=== PATIENT | male | born 1990 | race African-American/Black ===

== ENCOUNTER 2025-03-05 03:50 | Emergency (ER) | payer MEDICAID ==
[~2025-03-05] VITALS: Ht 180.3 cm; Wt 114.0 kg
[2025-03-05 03:53] VITALS: O2SAT 98
[2025-03-05] MEDS: KETOROLAC 15MG/ML VIAL IM ONE (05:21)
[2025-03-05] MEDS: LIDOCAINE 5% PATCH TOP SCH (05:21)
[2025-03-05] MEDS ORDERED: NAPR-1176 MT (05:23)
[2025-03-05] MEDS ORDERED: LIDO-53 TP (05:23)
[2025-03-05 06:04] LABS: BASOPHILS % 1.6 % (0.0-2.0); EOSINOPHILS % 0.3 % (0.0-5.0); HEMATOCRIT. 39.6 % (42.0-52.0); HEMOGLOBIN. 13.4 g/dL (14.0-18.0); LYMPHOCYTES % 14.4 % (20.0-50.0); MEAN PLATELET VOLUME 7.1 fl (7.4-10.4); MONOCYTES % 4.3 % (2.0-8.0); NEUTROPHILS % 79.4 % (40.0-76.0); PLATELET 398 x1000/uL (130-400); RED BLOOD CELL COUNT 4.24 mill/uL (4.7-6.1); RED CELL DISTRIBUTION WIDTH 17.0 % (11.6-14.6)
[2025-03-05 06:16] LABS: CREATININE 0.8 mg/dL (0.6-1.3); UREA NITROGEN BLOOD 5 mg/dL (9-23)
[2025-03-05 11:24] LABS: CLARITY URINE CLEAR (CLEAR); COLOR URINE YELLOW (YELLOW); GLUCOSE URINE NEGATIVE (NEGATIVE); KETONES URINE 2+ (NEGATIVE); LEUKOCYTE ESTERASE URINE NEGATIVE (NEGATIVE); NITRITE URINE NEGATIVE (NEGATIVE); OCCULT BLOOD URINE NEGATIVE (NEGATIVE); PH URINE 5.0 (4.5-8.0); PROTEIN URINE NEGATIVE (NEGATIVE); SPECIFIC GRAVITY URINE 1.004 (1.005-1.030); UROBILINOGEN URINE 0.2 E.U./dL (0.2-1.0)
[2025-03-05 11:44] LABS: *AMPHETAMINES SCREEN URINE NEGATIVE (NEGATIVE); *BARBITURATES SCREEN URINE NEGATIVE (NEGATIVE); *BENZODIAZEPINES SCREEN URINE NEGATIVE (NEGATIVE); *COCAINE SCREEN URINE NEGATIVE (NEGATIVE); METHADONE URINE SCREEN NEGATIVE (NEGATIVE); OPIATES URINE SCREEN NEGATIVE (NEGATIVE); PHENCYCLIDINE URINE SCREEN NEGATIVE (NEGATIVE)
[2025-03-05 11:45] LABS: CANNABINOID URINE SCREEN NEGATIVE (NEGATIVE); ECSTASY MDMA SCREEN URINE NEGATIVE (NEGATIVE)
[2025-03-05] MEDS: POTASSIUM CHLORIDE 20MEQ/PACKET PO ONE (12:51)
[2025-03-05 14:23] VITALS: BP 145/85; PULSE 74; RESP 16; TEMP 36.8; O2SAT 99
== END 2025-03-05 14:30 | disposition short-term general hospital (02) ==
LOC: ER 03:50
DX: S22.32XA Fracture of one rib, left side, initial encounter for closed fracture (principal); R45.851 Suicidal ideations; Z79.899 Other long term (current) drug therapy
CPT/HCPCS: 80305; 80048; 81003; 80307; 80329; 80320; 85025; 36415; 71100; 96372; 99285; J1885; G0480